=== PATIENT | female | born 1985 | race Caucasian/White ===

== ENCOUNTER 2016-09-10 15:27 | Emergency (ER) | payer OTHER | END 2016-09-10 17:06 | disposition home or self-care (01) | LOC: FER 15:27 | DX: M25.571 Pain in right ankle and joints of right foot (principal); F17.210 Nicotine dependence, cigarettes, uncomplicated | CPT/HCPCS: 99283; J1885 ==

== ENCOUNTER 2021-01-24 09:23 | Emergency (ER) | payer OTHER ==
[2021-01-24 10:03] LABS: BASOPHIL 0.3 % (0-2); BILIRUBIN NEGATIVE (NEGATIVE); BLOOD NEGATIVE Ery/uL (NEGATIVE); CLARITY CLEAR (CLEAR); COLOR YELLOW (YELLOW); EOSINOPHIL 0.5 % (0-5); GLUCOSE (U) NORMAL (NORMAL); HCT 31.1 % (37.0-47.0); HGB 10.3 g/dl (12.5-16.0); LEUKOCYTES TRACE Leu/uL (NEGATIVE); LYMPHOCYTE 5.8 % (15-48); MCH 31.8 pg (25.0-31.0); MCHC 33.1 g/dL (32.0-36.0); MONOCYTE 10.5 % (0-12); NEUTROPHIL 79.9 % (41-80); NITRITE NEGATIVE (NEGATIVE); NRBC 0; PLT 289 K/uL (150-400); PROTEIN TRACE (LOW) mg/dL (NEGATIVE); RBC 3.24 M/uL (4.20-5.40); RDW 12.8 % (11.5-14.0); SPECIFIC GRAVITY 1.025 (1.001-1.030); UROBILINOGEN 0.2 mg/dL (0.2-1.0)
[2021-01-24 10:19] LABS: BUN/CREAT RATIO (CALC) 12.1 RATIO; CREATININE 0.66 mg/dL (0.51-0.95); POTASSIUM 3.7 mmol/L (3.5-5.1)
[2021-01-24 11:01] LABS: BACTERIA 1+; SQUAMOUS EPITHELIAL CELLS 20-50
== END 2021-01-24 11:50 | disposition home or self-care (01) ==
LOC: FER 09:23
PROVIDERS: Emergency Medicine
DX: O98.513 Other viral diseases complicating pregnancy, third trimester (principal); U07.1 COVID-19; Z3A.30 30 weeks gestation of pregnancy
CPT/HCPCS: 36415; 80048; 81001; 85025; 99283; U0002

== ENCOUNTER 2021-04-04 23:22 | Inpatient (IN) | payer OTHER ==
[~2021-04-04] VITALS: Ht 154.9 cm; Wt 67.6 kg
[2021-04-05 01:07] LABS: BILIRUBIN NEGATIVE (NEGATIVE); BLOOD 3+ Ery/uL (NEGATIVE); CLARITY CLOUDY (CLEAR); COLOR RED (YELLOW); GLUCOSE (U) NORMAL (NORMAL); LEUKOCYTES 1+ Leu/uL (NEGATIVE); NITRITE NEGATIVE (NEGATIVE); PROTEIN TRACE (LOW) mg/dL (NEGATIVE); UROBILINOGEN 0.2 mg/dL (0.2-1.0)
[2021-04-05 01:12] LABS: AMPHETAMINES NEGATIVE (NEGATIVE); BARBITURATES NEGATIVE (NEGATIVE); ECSTASY (MDMA) NEGATIVE (NEGATIVE); MARIJUANA (THC) NEGATIVE (NEGATIVE); METHADONE NEGATIVE (NEGATIVE); OPIATES NEGATIVE (NEGATIVE); OXYCODONE NEGATIVE (NEGATIVE)
[2021-04-05 01:14] LABS: BACTERIA 2+; SQUAMOUS EPITHELIAL CELLS >50; URINARY RBC TNTC; URINARY WBC 20-50
[2021-04-05 02:25] LABS: HCT 36.8 % (37.0-47.0); HGB 12.5 g/dl (12.5-16.0); MCH 32.1 pg (25.0-31.0); MCV 94.6 fL (78.0-100.0); MPV 9.5 fL (6.0-9.5); RBC 3.89 M/uL (4.20-5.40); WBC 16.2 K/uL (4.0-10.5)
[2021-04-06 06:19] LABS: HCT 30.5 % (37.0-47.0); HGB 10.4 g/dl (12.5-16.0); MCH 32.8 pg (25.0-31.0); MCHC 34.1 g/dL (32.0-36.0); MCV 96.2 fL (78.0-100.0); MPV 9.5 fL (6.0-9.5); RBC 3.17 M/uL (4.20-5.40); WBC 15.6 K/uL (4.0-10.5)
== END 2021-04-07 10:48 | disposition home or self-care (01) | DRG 807 ==
LOC: FOB 23:22 → FOD 23:22 → FOB 23:23 → FOD 04-05 01:28 → FOB 04-05 01:29
PROVIDERS: ADMIT Specialist
PROC: 10E0XZZ Delivery of Products of Conception, External Approach (ICD-10-PCS; principal; 2021-04-05)
DX: O98.413 Viral hepatitis complicating pregnancy, third trimester (principal); Z37.0 Single live birth; B19.20 Unspecified viral hepatitis C without hepatic coma; O69.81X0 Labor and delivery complicated by cord around neck, without compression, not applicable or unspecified; Z20.822 Contact with and (suspected) exposure to COVID-19; Z3A.39 39 weeks gestation of pregnancy
CPT/HCPCS: 36415; 80305; 81001; 90686; J0595; J2001; J2405; J3010; J7120; U0002